=== PATIENT | male | born 1975 | race Caucasian/White ===

== ENCOUNTER → 2017-01-02 | Outpatient (CLI) | payer OTHER ==
--- NOTE | 2017-01-02 13:13 | MR ---
EXAMINATION TYPE: MR knee LT wo con DATE OF EXAM: 01/02/2017 COMPARISON: Plain film 12/29/2016 HISTORY: Left knee pain TECHNIQUE: Multiplanar, multisequence imaging of the left knee is performed without IV contrast. FINDINGS: MEDIAL MENISCUS: Posterior horn shows complex tear, anterior horn is intact. LATERAL MENISCUS: Anterior and posterior horns are intact without tear. CRUCIATE LIGAMENTS: The anterior and posterior cruciate ligaments are intact and unremarkable. COLLATERAL LIGAMENTS: The medial collateral ligament and lateral collateral ligament complex are inta ct and unremarkable. EXTENSOR MECHANISM: Visualized quadriceps and patellar tendons are intact. EFFUSION: There is moderate joint effusion in suprapatellar bursa POPLITEAL CYST: No popliteal/aguilar cyst. 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 BONE MARROW SIGNAL: No focal abnormal marrow signal is appreciated. OTHER: No additional significant abnormality is appreciated. IMPRESSION: Tear of the posterior horn of the medial meniscus and additional findings above
== END | disposition home or self-care (01) ==
LOC: RADMRIMAIN 08:39
PROVIDERS: ATTEND Orthopaedic Surgery
DX: S83.242A Other tear of medial meniscus, current injury, left knee, initial encounter (principal)